=== PATIENT | female | born 1965 | race African-American/Black ===

== ENCOUNTER 2018-10-23 19:20 | Emergency (ER) | payer OTHER ==
[2018-10-23 19:36] VITALS: BP 147/72; PULSE 85; TEMP 98.1; BMI 29.1
--- NOTE | 2018-10-23 21:41 | PDOC ---
History of Present Illness - General Chief Complaint: Shortness of Breath Stated Complaint: PCP SENT/TACHYCARDIA Time Seen by Provider: 10/23/18 21:28 Past History - Past Medical History Allergies/Adverse Reactions: Allergies Allergy/AdvReac Type Severity Reaction Status Date / Time No Known Allergies Allergy Verified 10/23/18 19:34 Home Medications: Ambulatory Orders Latanoprost 0.005% Eye Drops [Xalatan 0.005% Eye Drops -] 1 drop HS 12/07/12 Timolol Maleate 0.5% Gfs [Timoptic Xe 0.5%] 1 drop DAILY 12/07/12 levoFLOXacin [Levaquin -] 500 mg PO DAILY #7 tablet 10/22/15 metroNIDAZOLE [Flagyl -] 500 mg PO TID #21 tablet 10/22/15 Cephalexin [Keflex] 250 mg PO QID #12 capsule 03/25/16 Oxycodone HCl/Acetaminophen [Percocet 5-325 mg Tablet] 1 tab PO Q6H PRN #8 tablet MDD 4 03/25/16 Cardiac Disorders: Yes (mvp) COPD: No GI Disorders: Yes (diverticulosis) Thyroid Disease: No (multinodular goiter) - Surgical History Abdominal Surgery: Yes (TUBAL LIGATION) - Suicide/Smoking/Psychosocial Hx Smoking Status: No Smoking History: Never smoked Have you smoked in the past 12 months: No Number of Cigarettes Smoked Daily: 0 Information on smoking cessation initiated: No Hx Alcohol Use: No Drug/Substance Use Hx: No Substance Use Type: None Cardiac Specific PMH - Complaint Specific PMHX GERD: No *Physical Exam - Vital Signs Last Vital Signs Temp Pulse Resp BP Pulse Ox 98.1 F 85 18 147/72 99 10/23/18 19:35 10/23/18 19:35 10/23/18 19:35 10/23/18 19:35 10/23/18 19:35 *DC/Admit/Observation/Transfer Diagnosis at time of Disposition: Tachycardia - Discharge Dispostion Disposition: LEFT BEFORE [facility] - Referrals Referrals: Vivien Grewal MD [Primary Care Provider] - - Patient Instructions - Post Discharge Activity
--- NOTE | 2018-10-24 09:36 | EKG ---
Test Reason : Blood Pressure : / mmHG Vent. Rate : 074 BPM Atrial Rate : 074 BPM P-R Int : 152 ms QRS Dur : 088 ms QT Int : 394 ms P-R-T Axes : 074 067 058 degrees QTc Int : 437 ms NORMAL SINUS RHYTHM NORMAL ECG WHEN COMPARED WITH ECG OF 20-OCT-2015 06:50, NO SIGNIFICANT CHANGE WAS FOUND Confirmed by NERY MELGAR MD ([id number]) on 10/24/2018 9:35:43 AM Referred By: Confirmed By:NERY MELGAR MD
== END 2018-10-23 22:40 | disposition left against medical advice (07) ==
LOC: JER 19:20
DX: Z53.21 Procedure and treatment not carried out due to patient leaving prior to being seen by health care provider (principal)
CPT/HCPCS: 93005; 93010; 99281-25

== ENCOUNTER 2019-01-11 13:40 | Inpatient (IN) | payer OTHER ==
--- NOTE | 2019-01-11 13:54 | PDOC ---
Rapid Medical Evaluation Chief Complaint: Pain Time Seen by Provider: 01/11/19 13:52 Medical Evaluation: Allergies Allergy/AdvReac Type Severity Reaction Status Date / Time No Known Allergies Allergy Verified 10/23/18 19:34 Vital Signs Temp Pulse Resp BP Pulse Ox 99.6 F 89 17 129/75 100 01/11/19 13:48 01/11/19 13:48 01/11/19 13:48 01/11/19 13:48 01/11/19 13:48 01/11/19 13:53 Patient complaints of: lower abd cramping w/ diarrhea, hx of diverticulitis, followed by dr bains Patient on brief exam: llq tenderness. temp 99.6 Patient ordered for: labs and urine Patient to proceed to the ED Discharge Disposition - Diagnosis Abdominal pain - Referrals - Patient Instructions - Post Discharge Activity
--- NOTE | 2019-01-11 14:04 | PDOC ---
History of Present Illness - General Chief Complaint: Pain Stated Complaint: ABD PAIN Time Seen by Provider: 01/11/19 13:52 - History of Present Illness Initial Comments: 01/11/19 14:36 Patient is a 53 year old female presented to the ED with the chief complaint of left sided abdominal pain that started yesterday while she was at work. As per the patient, she was apparently well, then she started having left sided abdominal pain, 8/10 in intensity, non radiating, cramping in nature. Associated with 3 episodes of watery diarrhea yesterday and 2 episodes today. Pain became worse so she came in to the ED for further evaluation. Patient reports that she started having chills since she came in to the ED but no fevers at home. Denies chest pain, sob, cough, palpitation, nausea or vomiting. Bladder habit normal. No urinary symptoms. Patient had briefly visited the ED on 10/16 for shortness of breath, left before medical evaluation. Past Medical history: Diverticulitis, MVP Allergies: NKDA Past Surgical hx: Tubal ligation Social history Smoking: Denies Alcohol: Denies Drugs: Denies Family Hx: Non contributory Past History - Travel Traveled outside of the country in the last 30 days: No Close contact w/someone who was outside of country & ill: No - Past Medical History Allergies/Adverse Reactions: Allergies Allergy/AdvReac Type Severity Reaction Status Date / Time No Known Allergies Allergy Verified 10/23/18 19:34 Home Medications: Ambulatory Orders Timolol Maleate 0.5% Gfs [Timoptic Xe 0.5%] 1 drop DAILY 12/07/12 Cardiac Disorders: Yes (mvp) COPD: No GI Disorders: Yes (diverticulosis) Thyroid Disease: No (multinodular goiter) - Surgical History Abdominal Surgery: Yes (TUBAL LIGATION) - Immunization History Immunization Up to Date: Yes - Suicide/Smoking/Psychosocial Hx Smoking Status: No Smoking History: Never smoked Have you smoked in the past 12 months: No Number of Cigarettes Smoked Daily: 0 Information on smoking cessation initiated: No Hx Alcohol Use: No Drug/Substance Use Hx: No Substance Use Type: None Review of Systems - Review of Systems Able to Perform ROS?: Yes Is the patient limited Yakut proficient: No Constitutional: Yes: See HPI HEENTM: Yes: See HPI Respiratory: Yes: See HPI *Physical Exam - Vital Signs Last Vital Signs Temp Pulse Resp BP Pulse Ox 99.6 F 89 17 129/75 100 01/11/19 13:48 01/11/19 13:48 01/11/19 13:48 01/11/19 13:48 01/11/19 13:48 - Physical Exam Comments: 01/11/19 13:00 General: Pt is sitting in bed comfortably, awake, alert, oriented x 3, in no acute distress HEENT: EOM intact, no pallor or icterus. Chest: B/L lungs clear, no added sounds. CVS: Regular rate rhythm, no murmurs Abdomen: Soft, tender to palpation in the left lower quadrant, no organomegaly, BS+ Ext: No peripheral edema Neuro: Grossly normal. ED Treatment Course - LABORATORY CBC & Chemistry Diagram: 01/11/19 14:30 01/11/19 14:30 Medical Decision Making - Medical Decision Making 01/11/19 14:00 Patient is a 53 year old female with PMHx of Diverticulitis, Thyroid disease presented to the ED with abdominal pain, diarrhoea. D/D: Appendicitis, Diverticulitis WIll send CBC, CMP, UA, Lactic acid. Will send Abdomen/Pelvis CT 01/11/19 21:44 CBC, CMP, UA< Lactic acid unremarkable CT abdomen/Pelvis shows acute diverticulitis without abscess. UA positive. Patient now complaining of increased frequency of urination 21:50 Discussed report with the patient. Still has abdominal pain, nauseaous, unable to tolerate PO . Admitting diagnosis: Uncomplicated Diverticulitis with UTI. [place] [facility], pt requires IV antibiotics. 01/11/19 21:55 Accepted by [facility] for admission. *DC/Admit/Observation/Transfer Diagnosis at time of Disposition: Abdominal pain - Referrals - Patient Instructions - Post Discharge Activity
[2019-01-11] MEDS ORDERED: SODIUM CHLORIDE 1,000 ML IV STA (15:08)
[2019-01-11 16:16] LABS: BILIRUBIN,TOTAL 0.9 mg/dL (0.2-1); BLOOD UREA NITROGEN 12.2 mg/dL (7-18); CALCIUM 9.6 mg/dL (8.5-10.1); CREATININE 0.9 mg/dL (0.55-1.3); TOT PROT 7.9 g/dl (6.4-8.2)
--- NOTE | 2019-01-11 16:26 | PDOC ---
Documentation entered by Klaudia Mchugh SCRIBE, acting as scribe for Nadine Cuevas MD. Nadine Cuevas MD: This documentation has been prepared by the [employer], SCRIBE, under my direction and personally reviewed by me in its entirety. I confirm that the documentation accurately reflects all work, treatment, procedures, and medical decision making performed by me. Attending Attestation - Resident Resident Name: Gayatri Westfall - ED Attending Attestation I have performed the following: I have examined & evaluated the patient, The case was reviewed & discussed with the resident, I agree w/resident's findings & plan, Exceptions are as noted - HPI HPI: 01/11/19 16:21 53 yo F with h/o divericulitis here with lower abd pain. loose stool.started 2 - 3 days ago. nausea, no vomiting. no mod factors. c/o llq pain. no urinary complaints. no fever, does have chills. pain constant. having soft stools, 3 / day. no h/o abdominal surgeries. except tubal ligation. no recent travel. no h/o recent abx. 01/11/19 16:25 - Physicial Exam PE: 01/11/19 16:24 awake alert lungs clear bilat heart rrr no mrg abd soft mild llq ttp. no cva tenderness. ext wwp no edema. no rash. - Medical Decision Making 01/11/19 16:25 differential diverticulitis uti, colitis, . plan iv hydration labs ct a/p.
[2019-01-11 16:45] LABS: HYALINE CASTS 6 /lpf (0-8); PH,URINE 6.5 (5.0-8.0); URINE APPEARANCE CLEAR; URINE BACTERIA 76.2 /hpf (NEGATIVE); URINE BILIRUBIN NEGATIVE (NEGATIVE); URINE COLOR YELLOW; URINE GLUCOSE (UA) NEGATIVE (NEGATIVE); URINE KETONE NEGATIVE (NEGATIVE); URINE LEUK ESTERASE 2+ (NEGATIVE); URINE NITRITE NEGATIVE (NEGATIVE); URINE PROTEIN NEGATIVE (NEGATIVE); URINE RBC 2 /hpf (0-4); URINE WBC 26 /hpf (0-5)
[2019-01-11 17:38] LABS: BASO % 0.2 % (0-2.0); EOS % 0.1 % (0-4.5); HEMATOCRIT 35.5 % (32.4-45.2); HEMOGLOBIN 11.8 GM/dL (10.7-15.3); LYMPH % 13.3 % (8-40); MCH 27.8 pg (25.7-33.7); MCHC 33.1 g/dl (32.0-36.0); MEAN CELL VOLUME 84.2 fl (80-96); MEAN PLT VOLUME 8.9 fl (7.5-11.1); MONO % 6.6 % (3.8-10.2); NEUT % 79.8 % (42.8-82.8); RBC 4.22 M/mm3 (3.60-5.2); RDW 15.8 % (11.6-15.6); WHITE BLOOD COUNT 7.4 K/mm3 (4.0-10.0)
[2019-01-11 18:38] LABS: PLATELET COUNT 191 K/MM3 (134-434)
[2019-01-11] MEDS ORDERED: SODIUM CHLORIDE 1,000 ML IV SCH (22:00)
--- NOTE | 2019-01-11 22:33 | PN ---
Teaching Attending Note Name of Resident: Margaret Nunez ATTENDING PHYSICIAN STATEMENT I saw and evaluated the patient. I reviewed the resident's note and discussed the case with the resident. I agree with the resident's findings and plan as documented. SUBJECTIVE: Seen and examined; please refer to resident note for further historical information. Briefly, PMH of glaucoma, MVP, diverticulitis. P/w abdominal pain x2 days, started yesterday AM. Intermittent, moderate to severe, worse with food. Hasn't eaten since yesterday. 3x hospitalizations in the past for diverticulitis (first one in 1997). Had diverticulitis episode here several years ago; saw Dr. Reis a that time. No sgy done and was treated with a course of levaquin and flagyl. No hematochezia/melena. 5 years ago [address]oscopy with Dr. Tuttle; she is due for one now. 10 sys ROS done and negative aside from HPI PMH, PSH, FH, SH reviewed Home Medications Medication Instructions Recorded Timolol Maleate 0.5% Gfs [Timoptic 1 drop DAILY 12/07/12 Xe 0.5%] OBJECTIVE: VS, labs, imaging reviewed NAD, AAO, resting in bed NC AT EOMI PERRLA RRR s1/2 no mgr Lungs CTAB, w/ sym exp Tender diffusely without rebound, ND, soft, +BS CN2-12 wnl, no fnd Normal mood, appropriate behavior EKG reviewed CXR reviewed ASSESSMENT AND PLAN: Patient presents with recurring acute diverticulitis; she has been seen by Dr. Reis in the past 1) Acute diverticulitis, recurrent -As seen on CT; consistent with prior episodes. -Continue levaquin and flagyl, monitor for symptomatic improvement. Pain control -Consider consulting Dr. Reis as recurring issues with diverticulosis -Followup with Dr. Tuttle for colonoscopy 2) Glaucoma -Continue home eyedrops 3) Likely fibroids -Followup final CT report; refer to field professional at [facility] Full Code
--- NOTE | 2019-01-11 22:37 | HP ---
CHIEF COMPLAINT: abdominal pain PCP: Dr. Pascual GI- Dr. Tuttle HISTORY OF PRESENT ILLNESS: 53F w/ pmhx of HLD, diverticulitis (diagnosed 1997), MVP, glaucoma who presents in the ED with abdominal pain since yesterday morning. She states the pain is 6/ 10, intermittent and lasts for seconds at a time. It is worsened when eating and relieved with bowel movements. She states she has been hospitalized for about 3-4 times in the past for acute diverticulitis. Admits to nonbloody loose bowel movements, 2x yesterday and 3x today. Denies nausea or vomiting. She has not taken any medications for her symptoms. Also admits to subjective fever and chills. Of note, she follows GI (Dr. Tuttle) and last colonoscopy was 5 years ago, with polypectomy and is now due for a repeat colonoscopy. She currently eats a high fiber diet as recommended by GI. ER course was notable for: (1) VS wnl, AST/ALT 06/19, U/A 2+ LE, 26 WBCs (2) CTAP: Acute diverticulitis distal descending/proximal sigmoid colon w/o abscess formation (3) NSx1L given, IV Levaquin 750, IV Flagyl 500 given Recent Travel: Denies PAST MEDICAL HISTORY: HLD diverticulitis MVP glaucoma PAST SURGICAL HISTORY: strabismus surgery tubal ligation Social History: Smoking: Denies Alcohol: Denies Drugs: Denies Family History: Mother- Gastric cx Allergies No Known Allergies Allergy (Verified 10/23/18 19:34) HOME MEDICATIONS: Home Medications Medication Instructions Recorded Timolol Maleate 0.5% Gfs [Timoptic 1 drop DAILY 12/07/12 Xe 0.5%] REVIEW OF SYSTEMS CONSTITUTIONAL: +fever, chills Absent: diaphoresis, generalized weakness, malaise, loss of appetite, weight change HEENT: Absent: rhinorrhea, nasal congestion, throat pain, throat swelling, difficulty swallowing, mouth swelling, ear pain, eye pain, visual changes CARDIOVASCULAR: Absent: chest pain, syncope, palpitations, irregular heart rate, lightheadedness , peripheral edema RESPIRATORY: Absent: cough, shortness of breath, dyspnea with exertion, orthopnea, wheezing, stridor, hemoptysis GASTROINTESTINAL: +abdominal pain, +loose bowels, nonbloody Absent: , abdominal distension, nausea, vomiting, diarrhea, constipation, melena , hematochezia GENITOURINARY: Absent: dysuria, frequency, urgency, hesitancy, hematuria, flank pain, genital pain MUSCULOSKELETAL: Absent: myalgia, arthralgia, joint swelling, back pain, neck pain SKIN: Absent: rash, itching, pallor HEMATOLOGIC/IMMUNOLOGIC: Absent: easy bleeding, easy bruising, lymphadenopathy, frequent infections ENDOCRINE: Absent: unexplained weight gain, unexplained weight loss, heat intolerance, cold intolerance NEUROLOGIC: Absent: headache, focal weakness or paresthesias, dizziness, unsteady gait, seizure, mental status changes, bladder or bowel incontinence PHYSICAL EXAMINATION Vital Signs - 24 hr 01/11/19 13:48 Temperature 99.6 F Pulse Rate 89 Respiratory 17 Rate Blood Pressure 129/75 O2 Sat by Pulse 100 Oximetry (%) GENERAL: AAOx3. NAD. HEENT: AT/NC. EOMI. Dry mucus membranes. Strabismus NECK: Normal range of motion, supple without lymphadenopathy, JVD, or masses. LUNGS: CTA B/L. No wheezes noted. HEART: RRR. Normal S1, S2. No murmurs noted. ABDOMEN: Soft, +TTP on L u/l quadrant. No masses noted. MUSCULOSKELETAL: Normal range of motion at all joints. No bony deformities or tenderness. No CVA tenderness. EXTREMITIES: No peripheral edema noted. NEUROLOGICAL: Cranial nerves II-XII intact. Normal speech. SKIN: Warm, dry, normal turgor, no rashes or lesions noted, normal capillary refill. CBCD WBC 7.4 K/mm3 (4.0-10.0) 01/11/19 14:30 RBC 4.22 M/mm3 (3.60-5.2) 01/11/19 14:30 Hgb 11.8 GM/dL (10.7-15.3) 01/11/19 14:30 Hct 35.5 % (32.4-45.2) 01/11/19 14:30 MCV 84.2 fl (80-96) 01/11/19 14:30 MCHC 33.1 g/dl (32.0-36.0) 01/11/19 14:30 RDW 15.8 % (11.6-15.6) H D 01/11/19 14:30 Plt Count 191 K/MM3 (134-434) 01/11/19 14:30 MPV 8.9 fl (7.5-11.1) 01/11/19 14:30 CMP Sodium 140 mmol/L (136-145) 01/11/19 14:30 Potassium 4.0 mmol/L (3.5-5.1) 01/11/19 14:30 Chloride 106 mmol/L (98-107) 01/11/19 14:30 Carbon Dioxide 30 mmol/L (21-32) 01/11/19 14:30 Anion Gap 4 MMOL/L (8-16) L 01/11/19 14:30 BUN 12.2 mg/dL (7-18) 01/11/19 14:30 Creatinine 0.9 mg/dL (0.55-1.3) 01/11/19 14:30 Calcium 9.6 mg/dL (8.5-10.1) 01/11/19 14:30 Total Bilirubin 0.9 mg/dL (0.2-1) 01/11/19 14:30 AST 11 U/L (15-37) L 01/11/19 14:30 ALT 20 U/L (13-61) 01/11/19 14:30 Alkaline Phosphatase 82 U/L (45-117) 01/11/19 14:30 Total Protein 7.9 g/dl (6.4-8.2) 01/11/19 14:30 Albumin 4.0 g/dl (3.4-5.0) 01/11/19 14:30 IMAGING: * CTAP: Acute diverticulitis distal descending/proximal sigmoid colon w/o abscess formation ASSESSMENT/PLAN: 53F w/ pmhx of HLD, diverticulitis (diagnosed 1997), MVP, glaucoma who presents in the ED with abdominal pain found to have acute diverticulitis on imaging. #Acute Diverticulitis -CTAP noted above, remarkable for acute diverticulitis in distal descending/ proximal sigmoid colon w/o abscess formation -Follows Dr. Tuttle (GI); last colonoscopy done 5 years ago. Will need outpatient follow up for repeat colonoscopy -Will start PO trial on clear liquids; advance as tolerated -Consider colorectal surg consult as pt was previously seen by Dr. Reis during 2016 hospitalization -Cont IV Levaquin/Flagyl #Glaucoma; Cont home meds: Xalatan and Timolol drops #HLD; Not currently on meds #Ppx -early ambulation, SCDs FEN -LR @ 100 -recheck lytes in AM -CLD, advance as tolerated Dispo -admit to med-surg Visit type - Emergency Visit Emergency Visit: Yes ED Registration Date: 01/11/19 Care time: The patient presented to the Emergency Department on the above date and was hospitalized for further evaluation of their emergent condition. - New Patient This patient is new to me today: Yes Date on this admission: 01/13/19 - Critical Care Critical Care patient: No
--- NOTE | 2019-01-11 22:39 | HP ---
CHIEF COMPLAINT: PCP: HISTORY OF PRESENT ILLNESS: ER course was notable for: (1) (2) (3) Recent Travel: PAST MEDICAL HISTORY: PAST SURGICAL HISTORY: Social History: Smoking: Alcohol: Drugs: Family History: Allergies No Known Allergies Allergy (Verified 10/23/18 19:34) HOME MEDICATIONS: Home Medications Medication Instructions Recorded Timolol Maleate 0.5% Gfs [Timoptic 1 drop DAILY 12/07/12 Xe 0.5%] REVIEW OF SYSTEMS CONSTITUTIONAL: Absent: fever, chills, diaphoresis, generalized weakness, malaise, loss of appetite, weight change HEENT: Absent: rhinorrhea, nasal congestion, throat pain, throat swelling, difficulty swallowing, mouth swelling, ear pain, eye pain, visual changes CARDIOVASCULAR: Absent: chest pain, syncope, palpitations, irregular heart rate, lightheadedness , peripheral edema RESPIRATORY: Absent: cough, shortness of breath, dyspnea with exertion, orthopnea, wheezing, stridor, hemoptysis GASTROINTESTINAL: Absent: abdominal pain, abdominal distension, nausea, vomiting, diarrhea, constipation, melena, hematochezia GENITOURINARY: Absent: dysuria, frequency, urgency, hesitancy, hematuria, flank pain, genital pain MUSCULOSKELETAL: Absent: myalgia, arthralgia, joint swelling, back pain, neck pain SKIN: Absent: rash, itching, pallor HEMATOLOGIC/IMMUNOLOGIC: Absent: easy bleeding, easy bruising, lymphadenopathy, frequent infections ENDOCRINE: Absent: unexplained weight gain, unexplained weight loss, heat intolerance, cold intolerance NEUROLOGIC: Absent: headache, focal weakness or paresthesias, dizziness, unsteady gait, seizure, mental status changes, bladder or bowel incontinence PSYCHIATRIC: Absent: anxiety, depression, suicidal or homicidal ideation, hallucinations. PHYSICAL EXAMINATION Vital Signs - 24 hr 01/11/19 13:48 Temperature 99.6 F Pulse Rate 89 Respiratory 17 Rate Blood Pressure 129/75 O2 Sat by Pulse 100 Oximetry (%) GENERAL: Awake, alert, and fully oriented, in no acute distress. HEAD: Normal with no signs of trauma. EYES: Pupils equal, round and reactive to light, extraocular movements intact, sclera anicteric, conjunctiva clear. No lid lag. EARS, NOSE, THROAT: Ears normal, nares patent, oropharynx clear without exudates. Moist mucous membranes. NECK: Normal range of motion, supple without lymphadenopathy, JVD, or masses. LUNGS: Breath sounds equal, clear to auscultation bilaterally. No wheezes, and no crackles. No accessory muscle use. HEART: Regular rate and rhythm, normal S1 and S2 without murmur, rub or gallop. ABDOMEN: Soft, nontender, not distended, normoactive bowel sounds, no guarding, no rebound, no masses. No hepatomegaly or splenomegaly. MUSCULOSKELETAL: Normal range of motion at all joints. No bony deformities or tenderness. No CVA tenderness. UPPER EXTREMITIES: 2+ pulses, warm, well-perfused. No cyanosis. No clubbing. No peripheral edema. LOWER EXTREMITIES: 2+ pulses, warm, well-perfused. No calf tenderness. No peripheral edema. NEUROLOGICAL: Cranial nerves II-XII intact. Normal speech. Normal gait. PSYCHIATRIC: Cooperative. Good eye contact. Appropriate mood and affect. SKIN: Warm, dry, normal turgor, no rashes or lesions noted, normal capillary refill. Laboratory Results - last 24 hr 01/11/19 01/11/19 01/11/19 14:30 14:30 14:30 WBC 7.4 RBC 4.22 Hgb 11.8 Hct 35.5 MCV 84.2 MCH 27.8 MCHC 33.1 RDW 15.8 H D Plt Count 191 MPV 8.9 Absolute Neuts (auto) 5.9 Neutrophils % 79.8 D Lymphocytes % 13.3 D Monocytes % 6.6 Eosinophils % 0.1 D Basophils % 0.2 Nucleated RBC % 0 Sodium 140 Potassium 4.0 Chloride 106 Carbon Dioxide 30 Anion Gap 4 L BUN 12.2 Creatinine 0.9 Est GFR (CKD-EPI)AfAm 85.80 Est GFR (CKD-EPI)NonAf 74.03 Random Glucose 86 Lactic Acid 0.6 Calcium 9.6 Total Bilirubin 0.9 AST 11 L ALT 20 Alkaline Phosphatase 82 Total Protein 7.9 Albumin 4.0 Lipase Serum , Qual Urine Color Urine Appearance Urine pH Ur Specific Ida Urine Protein Urine Glucose (UA) Urine Ketones Urine Blood Urine Nitrite Urine Bilirubin Urine Urobilinogen Ur Leukocyte Esterase Urine WBC (Auto) Urine RBC (Auto) Urine Casts (Auto) U Epithel Cells (Auto) Urine Bacteria (Auto) 01/11/19 01/11/19 01/11/19 14:30 14:58 15:30 WBC RBC Hgb Hct MCV MCH MCHC RDW Plt Count MPV Absolute Neuts (auto) Neutrophils % Lymphocytes % Monocytes % Eosinophils % Basophils % Nucleated RBC % Sodium Potassium Chloride Carbon Dioxide Anion Gap BUN Creatinine Est GFR (CKD-EPI)AfAm Est GFR (CKD-EPI)NonAf Random Glucose Lactic Acid Calcium Total Bilirubin AST ALT Alkaline Phosphatase Total Protein Albumin Lipase 67 L Serum , Qual Negative Urine Color Yellow Urine Appearance Clear Urine pH 6.5 Ur Specific Ida 1.020 Urine Protein Negative Urine Glucose (UA) Negative Urine Ketones Negative Urine Blood Negative Urine Nitrite Negative Urine Bilirubin Negative Urine Urobilinogen 1.0 Ur Leukocyte Esterase 2+ H Urine WBC (Auto) 26 Urine RBC (Auto) 2 Urine Casts (Auto) 6 U Epithel Cells (Auto) 2.0 Urine Bacteria (Auto) 76.2 ASSESSMENT/PLAN:
[2019-01-11] MEDS ORDERED: ACETAMINOPHEN 325 MG TABLET (FP) PO PRN (22:55)
[2019-01-12 00:05] VITALS: BMI 27.6
[2019-01-12] MEDS: LACTATED RINGERS SOLUTION 1,000 ML IV SCH ×2 (00:07→13:15)
[2019-01-12 07:47] LABS: HEMATOCRIT 33.5 % (32.4-45.2); HEMOGLOBIN 11.3 GM/dL (10.7-15.3); MCH 28.2 pg (25.7-33.7); MCHC 33.6 g/dl (32.0-36.0); MEAN CELL VOLUME 83.8 fl (80-96); MEAN PLT VOLUME 8.6 fl (7.5-11.1); PLATELET COUNT 177 K/MM3 (134-434); RDW 15.2 % (11.6-15.6); WHITE BLOOD COUNT 6.7 K/mm3 (4.0-10.0)
[2019-01-12 08:01] LABS: ALBUMIN 3.2 g/dl (3.4-5.0); BILIRUBIN,TOTAL 1.2 mg/dL (0.2-1); CALCIUM 8.7 mg/dL (8.5-10.1); CREATININE 0.9 mg/dL (0.55-1.3); POTASSIUM 3.7 mmol/L (3.5-5.1); TOT PROT 6.7 g/dl (6.4-8.2)
--- NOTE | 2019-01-12 09:36 | PN ---
Progress Note (short form) - Note Progress Note: c/o RLQ/LLQ pain which has improved since arrival. endorses urinary frequency. denies CP, SOB, fever, chills, N/V/C/D. tolerating liquid diet Current Medications Generic Name Dose Route Start Last Admin Trade Name Freq PRN Reason Stop Dose Admin Acetaminophen 650 mg 01/11/19 22:55 Tylenol - PO Q4H PRN PAIN LEVEL 6-10 Metronidazole 500 mg in 100 mls @ 100 mls/hr 01/11/19 22:00 01/12/19 02:40 Flagyl 500mg Premixed Ivpb - IVPB 100 mls/hr Q8H-IV TANNER Administration Lactated Ringer's 1,000 mls @ 100 mls/hr 01/11/19 23:00 01/12/19 00:07 Lactated Ringers Solution IV Not Given ASDIR TANNER Levofloxacin 750 mg in 150 mls @ 150 mls/hr 01/12/19 10:00 Levaquin 750 Mg Premixed Ivpb - IVPB DAILY TANNER Protocol Latanoprost 1 drop 01/12/19 22:00 Xalatan 0.005% Eye Drops - OU HS TANNER Timolol Maleate 1 drop 01/12/19 10:00 Timoptic Xe 0.5% OU DAILY TANNER Last Vital Signs Temp Pulse Resp BP Pulse Ox 99.2 F 98 H 18 103/61 99 01/12/19 06:00 01/12/19 06:00 01/12/19 06:00 01/12/19 06:00 01/11/19 23:20 General NAD CV S1 S2 RRR no murmur/rub/gallop Lungs CTA B/L no wheezing/rales/rhonchi Abdomen soft diffusely tender worse in RLQ/LLQ/LUQ normoactive bs Extremities no pedal edema CBCD WBC 6.7 K/mm3 (4.0-10.0) 01/12/19 06:41 RBC 4.00 M/mm3 (3.60-5.2) 01/12/19 06:41 Hgb 11.3 GM/dL (10.7-15.3) 01/12/19 06:41 Hct 33.5 % (32.4-45.2) 01/12/19 06:41 MCV 83.8 fl (80-96) 01/12/19 06:41 MCHC 33.6 g/dl (32.0-36.0) 01/12/19 06:41 RDW 15.2 % (11.6-15.6) 01/12/19 06:41 Plt Count 177 K/MM3 (134-434) 01/12/19 06:41 MPV 8.6 fl (7.5-11.1) 01/12/19 06:41 CMP Sodium 141 mmol/L (136-145) 01/12/19 06:41 Potassium 3.7 mmol/L (3.5-5.1) 01/12/19 06:41 Chloride 108 mmol/L (98-107) H 01/12/19 06:41 Carbon Dioxide 26 mmol/L (21-32) 01/12/19 06:41 Anion Gap 7 MMOL/L (8-16) L 01/12/19 06:41 BUN 8.0 mg/dL (7-18) 01/12/19 06:41 Creatinine 0.9 mg/dL (0.55-1.3) 01/12/19 06:41 Calcium 8.7 mg/dL (8.5-10.1) 01/12/19 06:41 Total Bilirubin 1.2 mg/dL (0.2-1) H 01/12/19 06:41 AST 10 U/L (15-37) L 01/12/19 06:41 ALT 15 U/L (13-61) 01/12/19 06:41 Alkaline Phosphatase 71 U/L (45-117) 01/12/19 06:41 Total Protein 6.7 g/dl (6.4-8.2) 01/12/19 06:41 Albumin 3.2 g/dl (3.4-5.0) L 01/12/19 06:41 A/P 53yo F with PMH MVP, multiple diverticulitis (last one 2015)with colonoscopy a few years ago presenting with abdominal pain and found to have acute diverticulitis 1. Acute diverticulitis- requesting to eat more food however pt remains very tender on exam. would cont with clear liquid diet and advance once more comfortable, will reduce IVF, cont flagyl/levaquin day 2. pain control 2. UTI- UA+ with symptoms. obtain Ucx although been on abx and may be negative. abx for 1st issue will also treat 3. hyperbilrubinemia- slight uptrend. no RUQ pain, no reports on CT about CBD but mentions no cholelithasis. will monitor for now if uptrends or develops pain will get dedicated RUQ us. check fractionated bili 4. MVP 5. DVT ppx- start lovenox Visit type - Emergency Visit Emergency Visit: Yes ED Registration Date: 01/11/19 Care time: The patient presented to the Emergency Department on the above date and was hospitalized for further evaluation of their emergent condition. - New Patient This patient is new to me today: Yes Date on this admission: 01/12/19 - Critical Care Critical Care patient: No - Discharge Referral Referred to [facility] No
[2019-01-12] MEDS ORDERED: PT OWN MED DRAWER 7, Y5N ONE (10:08)
[2019-01-12] MEDS: ENOXAPARIN NA (PORCINE) 40 MG/0.4 ML DISP.SYRIN SQ SCH ×2 (12:13→12:47)
[2019-01-12] MEDS: TIMOLOL MALEATE 0.5% GFS OPHTHALMIC SOLN 5 ML BOTTLE OU SCH ×2 (13:16→13:23)
[2019-01-12] MEDS ORDERED: LATANOPROST 0.005% OPHTH SOLN 2.5ML BOTTLE OU SCH (22:00)
[2019-01-13] MEDS: LACTATED RINGERS SOLUTION 1,000 ML IV SCH ×2 (00:22→00:23)
[2019-01-13 07:40] LABS: ALBUMIN 3.1 g/dl (3.4-5.0); BILIRUBIN,DIRECT 0.2 mg/dL (0.0-0.2); BILIRUBIN,TOTAL 0.8 mg/dL (0.2-1); BLOOD UREA NITROGEN 7.4 mg/dL (7-18); CALCIUM 8.8 mg/dL (8.5-10.1); CREATININE 0.8 mg/dL (0.55-1.3); POTASSIUM 4.1 mmol/L (3.5-5.1); TOT PROT 6.4 g/dl (6.4-8.2)
[2019-01-13] MEDS: ENOXAPARIN NA (PORCINE) 40 MG/0.4 ML DISP.SYRIN SQ SCH (09:59)
[2019-01-13] MEDS: TIMOLOL MALEATE 0.5% GFS OPHTHALMIC SOLN 5 ML BOTTLE OU SCH (09:59)
--- NOTE | 2019-01-13 11:33 | PN ---
Teaching Attending Note Name of Resident: Margaret Nunez ATTENDING PHYSICIAN STATEMENT I saw and evaluated the patient. I reviewed the resident's note and discussed the case with the resident. I agree with the resident's findings and plan as documented. SUBJECTIVE:pain has resolved. tolerating full liquid diet. denies CP, SOB< fever , chills, N/V OBJECTIVE: Last Vital Signs Temp Pulse Resp BP Pulse Ox 98.6 F 70 18 130/77 100 01/13/19 10:01/13/19 10:01/13/19 10:01/13/19 10:01/12/19 21:00 General NAD ABdomen slight tenderness LLQ on deep palpation ASSESSMENT AND PLAN: 53yo F with PMH MVP, multiple diverticulitis (last one 2015)with colonoscopy a few years ago presenting with abdominal pain and found to have acute diverticulitis 1. Acute diverticulitis- clinically improved with very little amount of pain. will advance diet. if tolerated can d/c home with flagyl/levaquin to complete 7 day course. advised low fiber diet over the next month and then will need high fiber diet. GI follow up as outpatient for repeat colonoscopy. will need to consider surgical resection due to multiple recurrences. 2. UTI- on abx for problem #1 which will treat. Ucx pending. 3. hyperbilrubinemia- now normalized. will not puruse with more testing. 4. MVP 5. DVT ppx- lovenox 6/ d/c home if tolerates lunch
[2019-01-13 12:59] VITALS: BP 117/72; PULSE 82; TEMP 98.4
== END 2019-01-13 14:24 | disposition home or self-care (01) | DRG 244 ==
LOC: JER 13:40 → JERBED 22:12 → J5S 23:49
PROVIDERS: ADMIT Internal Medicine; ATTEND Internal Medicine
DX: K57.32 Diverticulitis of large intestine without perforation or abscess without bleeding (principal); H40.9 Unspecified glaucoma; D25.9 Leiomyoma of uterus, unspecified; E78.5 Hyperlipidemia, unspecified; N39.0 Urinary tract infection, site not specified; E80.6 Other disorders of bilirubin metabolism; I34.1 Nonrheumatic mitral (valve) prolapse
CPT/HCPCS: 36415; 74177-TC; 80053; 81003; 82248; 83605; 83690; 84703; 85025; 85027; 87040; 87086; 99283-25; J7030

== ENCOUNTER 2021-05-24 14:11 | Emergency (ER) | payer OTHER ==
[2021-05-24 15:26] VITALS: TEMP 98.1; BMI 28.3
[2021-05-24] MEDS ORDERED: SODIUM CHLORIDE 1,000 ML IV STA (17:11)
[2021-05-24 18:34] LABS: BASO % 0.5 % (0-2.0); EOS % 0.7 % (0-4.5); HEMATOCRIT 39.1 % (32.4-45.2); HEMOGLOBIN 12.8 GM/dL (10.7-15.3); LYMPH % 42.5 % (8-40); MCH 27.9 pg (25.7-33.7); MCHC 32.7 g/dl (32.0-36.0); MEAN CELL VOLUME 85.3 fl (80-96); MEAN PLT VOLUME 8.2 fl (7.5-11.1); MONO % 8.9 % (3.8-10.2); NEUT % 47.4 % (42.8-82.8); PLATELET COUNT 207 10^3/uL (134-434); RBC 4.58 M/mm3 (3.60-5.2); RDW 15.5 % (11.6-15.6); URINE APPEARANCE CLEAR; URINE BILIRUBIN NEGATIVE (NEGATIVE); URINE COLOR YELLOW; URINE GLUCOSE (UA) NEGATIVE (NEGATIVE); URINE KETONE NEGATIVE (NEGATIVE); URINE LEUK ESTERASE NEGATIVE (NEGATIVE); URINE NITRITE NEGATIVE (NEGATIVE); URINE PROTEIN NEGATIVE (NEGATIVE); URINE UROBILINOGEN 0.2 mg/dL (0.2-1.0); WHITE BLOOD COUNT 4.5 K/mm3 (4.0-10.0)
[2021-05-24 18:53] LABS: CHLORIDE 108 mmol/L (98-107); SODIUM 139 mmol/L (136-145)
[2021-05-24 18:56] LABS: CALCIUM 9.6 mg/dL (8.5-10.1)
[2021-05-24 18:57] LABS: ALBUMIN 3.9 g/dl (3.4-5.0); ANION GAP 5 MMOL/L (8-16); BLOOD UREA NITROGEN 9.2 mg/dL (7-18); CO2 26 mmol/L (21-32); GLUCOSE,RANDOM 82 mg/dL (74-106)
[2021-05-24 19:00] LABS: CREATININE 0.7 mg/dL (0.55-1.3); SGOT/AST 25 U/L (15-37); SGPT/ALT 22 U/L (13-61)
[2021-05-24 19:01] LABS: BILIRUBIN,TOTAL 0.6 mg/dL (0.2-1)
[2021-05-24 19:02] LABS: TOT PROT 8.2 g/dl (6.4-8.2)
[2021-05-24 19:03] LABS: ALK PHOS 79 U/L (45-117)
[2021-05-24 21:49] VITALS: BP 118/75; PULSE 84
== END 2021-05-24 22:21 | disposition home or self-care (01) ==
LOC: JER 14:11
PROC: 3E0337Z Introduction of Electrolytic and Water Balance Substance into Peripheral Vein, Percutaneous Approach (ICD-10-PCS; principal; 2021-05-24)
DX: R00.2 Palpitations (principal); R06.02 Shortness of breath
CPT/HCPCS: 36415; 71275-TC; 80053; 81003; 82550; 84439; 84443; 84480; 84484; 85025; 87086; 93005; 93010; 96360; 99285-25; C9803; U0003; U0005

== ENCOUNTER 2022-07-22 17:10 | Inpatient (IN) | payer OTHER ==
[2022-07-22] MEDS ORDERED: ONDANSETRON 4 MG/2 ML VIAL IVPUSH ONE (18:03)
[2022-07-22] MEDS ORDERED: ACETAMINOPHEN 1000 MG/100 ML BAG IVPB ONE (18:04)
[2022-07-22] MEDS ORDERED: ACETAMINOPHEN INJECTION 100 ML IVPB ONE (18:05)
[2022-07-22] MEDS ORDERED: ONDANSETRON 4 MG/2 ML VIAL ONE (18:05)
[2022-07-22 18:43] LABS: INR 1.34 (0.83-1.09); PROTHROMBIN TIME (PATIENT) 15.4 SEC (9.7-13.0)
[2022-07-22 18:46] LABS: ACTIVATED PTT 22.3 SECONDS (25.2-36.5)
[2022-07-22 18:56] LABS: CALCIUM 9.7 mg/dL (8.5-10.1)
[2022-07-22 18:57] LABS: BLOOD UREA NITROGEN 10.8 mg/dL (7-18)
[2022-07-22] MEDS ORDERED: PIPERACILLIN/TAZOB 4.5 GM 4.5 GM in DEXTROSE 5%-WATER 100 ML IVPB ONE (18:59)
[2022-07-22 19:00] LABS: CREATININE 0.9 mg/dL (0.55-1.3)
[2022-07-22 19:02] LABS: BILIRUBIN,TOTAL 1.8 mg/dL (0.2-1); TOT PROT 8.2 g/dl (6.4-8.2)
[2022-07-22] MEDS ORDERED: PIPERACILLIN/TAZOB 4.5 GM 4.5 GM/100 ML BAG IVPB ONE (19:30)
[2022-07-22 19:38] LABS: BASO % 0.1 % (0-2.0); EOS % 0.1 % (0-4.5); HEMATOCRIT 38.4 % (32.4-45.2); HEMOGLOBIN 12.5 GM/dL (10.7-15.3); LYMPH % 10.9 % (8-40); MCH 28.3 pg (25.7-33.7); MCHC 32.5 g/dl (32.0-36.0); MEAN CELL VOLUME 86.9 fl (80-96); MEAN PLT VOLUME 8.3 fl (7.5-11.1); MONO % 6.2 % (3.8-10.2); NEUT % 82.7 % (42.8-82.8); PLATELET COUNT 189 10^3/uL (134-434); RBC 4.42 M/mm3 (3.60-5.2); RDW 15.3 % (11.6-15.6); WHITE BLOOD COUNT 10.1 K/mm3 (4.0-10.0)
[2022-07-22 19:52] LABS: EPI CELLS 10 /uL (0-25.1); HYALINE CASTS 1 /uL (0-3.1); URINE APPEARANCE CLEAR; URINE BACTERIA 11 /uL (0-1359); URINE BILIRUBIN NEGATIVE (NEGATIVE); URINE COLOR YELLOW; URINE GLUCOSE (UA) NEGATIVE (NEGATIVE); URINE KETONE 3+ (NEGATIVE); URINE LEUK ESTERASE TRACE (NEGATIVE); URINE NITRITE NEGATIVE (NEGATIVE); URINE PROTEIN TRACE (NEGATIVE); URINE RBC 8 /uL (0-23.9); URINE WBC 7 /uL (0-25.8)
[2022-07-22] MEDS ORDERED: SODIUM CHLORIDE 0.9% 500 ML INFUS.BAG IV ONE (21:46)
[2022-07-23] MEDS ORDERED: PIPERACILLIN/TAZOB 3.375 GM 3.375 GM in DEXTROSE 5%-WATER - 50 ML IVPB SCH (02:00)
[2022-07-23 03:28] VITALS: BMI 27.1
[2022-07-23] MEDS ORDERED: ACETAMINOPHEN 1000 MG/100 ML BAG IVPB PRN (08:27)
[2022-07-23] MEDS ORDERED: LACTATED RINGERS SOLUTION 1,000 ML/1,000 ML INFUS.BAG IV SCH (08:30)
[2022-07-23] MEDS ORDERED: D5-LR+20 MEQ KCL - 20 MEQ/1,000 ML INFUS.BAG IV SCH ×2 (08:45→09:14)
[2022-07-23] MEDS ORDERED: ONDANSETRON 4 MG/2 ML VIAL IVPUSH ONE (09:54)
[2022-07-23] MEDS ORDERED: ENOXAPARIN NA (PORCINE) 40 MG/0.4 ML DISP.SYRIN SQ SCH (10:00)
[2022-07-23] MEDS ORDERED: TIMOLOL MALEATE 0.5% GFS OPHTHALMIC SOLN 5 ML BOTTLE OD SCH (10:00)
[2022-07-23] MEDS ORDERED: TIMOLOL MALEATE 0.5% GFS OPHTHALMIC SOLN 5 ML BOTTLE OU SCH (10:21)
[2022-07-23 10:56] LABS: HEMATOCRIT 36.8 % (32.4-45.2); HEMOGLOBIN 11.8 GM/dL (10.7-15.3); MCH 28.1 pg (25.7-33.7); MCHC 32.1 g/dl (32.0-36.0); MEAN CELL VOLUME 87.4 fl (80-96); MEAN PLT VOLUME 8.4 fl (7.5-11.1); PLATELET COUNT 171 10^3/uL (134-434); RBC 4.21 M/mm3 (3.60-5.2); RDW 14.6 % (11.6-15.6); WHITE BLOOD COUNT 9.4 K/mm3 (4.0-10.0)
[2022-07-23] MEDS: CEFTRIAXONE 1 GM in DEXTROSE 5%-WATER - 50 ML IVPB SCH (10:59)
[2022-07-23 11:16] LABS: CALCIUM 8.6 mg/dL (8.5-10.1)
[2022-07-23 11:17] LABS: ALBUMIN 3.3 g/dl (3.4-5.0); MAGNESIUM 2.1 mg/dL (1.8-2.4)
[2022-07-23 11:19] LABS: PHOSPHOROUS 2.6 mg/dL (2.5-4.9)
[2022-07-23 11:20] LABS: CREATININE 0.8 mg/dL (0.55-1.3)
[2022-07-23 11:21] LABS: BILIRUBIN,TOTAL 1.9 mg/dL (0.2-1)
[2022-07-23] MEDS: D5-LR+20 MEQ KCL - 20 MEQ/1,000 ML INFUS.BAG IV SCH (12:13)
[2022-07-23] MEDS ORDERED: ONDANSETRON 4 MG/2 ML VIAL IVPUSH PRN (13:18)
[2022-07-23] MEDS ORDERED: LATANOPROST 0.005% OPHTH SOLN 2.5ML BOTTLE OU SCH (22:00)
[2022-07-24] MEDS ORDERED: PIPERACILLIN/TAZOB 3.375 GM 3.375 GM in DEXTROSE 5%-WATER - 50 ML IVPB SCH (02:00)
[2022-07-24 07:36] VITALS: RESP 19
[2022-07-24 08:58] VITALS: BP 121/76; PULSE 73; TEMP 98.3
[2022-07-24 09:12] LABS: BASO % 0.4 % (0-2.0); EOS % 0.7 % (0-4.5); HEMATOCRIT 35.6 % (32.4-45.2); HEMOGLOBIN 11.4 GM/dL (10.7-15.3); LYMPH % 17.4 % (8-40); MCH 27.7 pg (25.7-33.7); MEAN CELL VOLUME 86.4 fl (80-96); MEAN PLT VOLUME 7.9 fl (7.5-11.1); NEUT % 73.5 % (42.8-82.8); PLATELET COUNT 186 10^3/uL (134-434); RBC 4.12 M/mm3 (3.60-5.2); RDW 14.8 % (11.6-15.6); WHITE BLOOD COUNT 4.7 K/mm3 (4.0-10.0)
[2022-07-24 09:37] LABS: CALCIUM 8.9 mg/dL (8.5-10.1)
[2022-07-24 09:38] LABS: ALBUMIN 3.1 g/dl (3.4-5.0); BLOOD UREA NITROGEN 5.2 mg/dL (7-18); MAGNESIUM 2.2 mg/dL (1.8-2.4)
[2022-07-24 09:41] LABS: CREATININE 0.8 mg/dL (0.55-1.3)
[2022-07-24 09:42] LABS: BILIRUBIN,TOTAL 0.9 mg/dL (0.2-1)
[2022-07-24] MEDS: CEFTRIAXONE 1 GM in DEXTROSE 5%-WATER - 50 ML IVPB SCH (10:16)
[2022-07-24] MEDS: ENOXAPARIN NA (PORCINE) 40 MG/0.4 ML DISP.SYRIN SQ SCH ×2 (10:21→10:27)
[2022-07-24] MEDS: D5-LR+20 MEQ KCL - 20 MEQ/1,000 ML INFUS.BAG IV SCH (10:26)
== END 2022-07-24 10:41 | disposition left against medical advice (07) | DRG 244 ==
LOC: JER 17:10 → JERBED 23:54 → J5S 07-23 03:46
PROVIDERS: ADMIT Family Medicine; ATTEND Internal Medicine
DX: K57.20 Diverticulitis of large intestine with perforation and abscess without bleeding (principal); R63.0 Anorexia; E03.9 Hypothyroidism, unspecified; E78.5 Hyperlipidemia, unspecified; H40.9 Unspecified glaucoma
CPT/HCPCS: 0241U-QW; 36415; 74177-TC; 76705-TC; 80053; 81003; 83690; 83735; 84100; 84436; 84443; 85025; 85027; 85610; 85730; 86140; 87086; 93005; 93010; 99285-25; Q9967